=== PATIENT | male | born 1960 | race Caucasian/White ===

== ENCOUNTER 2019-11-28 19:33 | Emergency (ER) | payer BC, SELFPAY ==
--- NOTE | ~2019-11-28 | XR_ITS ---
EXAMINATION: XR chest 2V EXAM DATE: 11/28/2019 20:02 INDICATION: Shortness of breath, cough, left axillary rib pain after running into wall. TECHNIQUE: Frontal and lateral projections of the chest obtained and reviewed. Comparison is made to prior examination from 05/25/2019. FINDINGS: The lungs are clear. There are no pleural effusions. The cardiomediastinal silhouette is within normal limits. There is no pneumothorax suspected. The bones and soft tissues are unremarkab le. IMPRESSION: No acute cardiopulmonary findings. Reviewed, dictated and finalized at location A. LFISH SHUCKER
--- NOTE | ~2019-11-28 | XR_ITS ---
EXAMINATION: XR ribs LT 2V EXAM DATE: 11/28/2019 20:29 INDICATION: Initial encounter following injury, with pain of the left ribs. TECHNIQUE: Frontal projection of the upper left ribs, frontal projection of the lower left ribs, obli que projection of the left ribs, without chest x-ray(s) for interpretation. Correlation is made to [facility] x-ray same date. FINDINGS: There are acute left 10th and 11th rib fractures identified laterally which are essentially nondisplaced. Closed, posttraumatic findings. No other suspicious findings. IMPRESSION: Acute left 10th, 11th rib fractures laterally. Reviewed, dictated and finalized at location A. RUBY ON RAILS DEVELOPER
[2019-11-28 19:37] VITALS: BP 146/98; PULSE 114; RESP 22; TEMP 36.1; O2SAT 98
--- NOTE | 2019-11-28 19:43 | ECG_ITS ---
Measurements Intervals [place] Rate: 109 P: 44 VA: 179 QRS: -31 QRSD: 101 T: 19 QT: 366 QTc: 493 Interpretive Statements SINUS TACHYCARDIA LEFT AXIS DEVIATION INCOMPLETE RIGHT BUNDLE BRANCH BLOCK DELAYED PRECORDIAL R/S TRANSITION BORDERLINE T WAVE ABNORMALITY- ANT/INF LEADS ABNORMAL ECG Electronically Signed On 11-28-2019 20:11:54 GLASS TUBE BENDER by Naif Wagner D.O.
[2019-11-28 20:03] LABS: Basophils Percent Auto 0.4 % (0.2-1.2); Eosinophils Percent Auto 0.1 % (0-4.4); Hemoglobin 14.7 g/dL (14.0-18.0); Immature Granulocyte Absolute 0.02 K/mm3 (0.00-0.031); Immature Granulocyte Percent A 0.3 % (0-0.5); Lymphocytes Absolute Auto 1.85 K/mm3 (0.9-3.2); Lymphocytes Percent Auto 26.1 % (18.3-44.2); Mean Corpuscular HGB Conc 34.2 g/dl (32-36); Mean Corpuscular Hemoglobin 33.8 pg (26-34); Mean Corpuscular Volume 98.9 fl (80-100); Mean Platelet Volume 8.3 fl (7.4-10.4); Monocytes Absolute Auto 0.6 K/mm3 (0.1-0.6); Monocytes Percent Auto 7.7 % (2.6-8.5); Neutrophils Absolute Auto 4.6 K/mm3 (1.3-6.7); Neutrophils Percent Auto 65.4 % (45.5-73.1); Platelet Count Result 183 k/mm3 (150-375); Red Blood Count 4.35 M/mm3 (4.6-6.20); Red Cell Distribution Width 13.7 % (11.5-14.5); White Blood Count 7.1 K/mm3 (4.5-10.0)
--- NOTE | 2019-11-28 20:05 | ED.SOB ---
HPI - SOB/Dyspnea General Chief Complaint: Shortness of Breath/Dyspnea Stated Complaint: sob, cough Time Seen by Provider: 11/28/19 19:51 Source: patient and RN notes reviewed Mode of arrival: ambulatory Limitations: no limitations History of Present Illness HPI Narrative: Pt is a 59 y/o male who presents to the ED with c/o SOB and lt lower rib pain starting roughly 3 weeks ago. He notes that he woke up from a bad dream and ran into a wall 3 weeks ago. Pt states that he struck his lt lower chest on the wall during the incident, and notes that he has had SOB due to difficulty taking a deep breath from hitting his ribs. He also reports a recent cough and anxiety, but denies any fever, lightheadedness, or dizziness. Pt states that he hasn't taken any pain medications for his symptoms. He notes that he is currently taking ASA 81 mg daily. MD elicited complaint: shortness of breath and chest pain (lt lower rib pain) Onset (ago): week(s) (3) Context: trauma/injury (struck lt lower chest on wall) Associated symptoms: cough and other (anxiety) Treatment prior to arrival: none Related Data Home Medications Medication Instructions Recorded Confirmed B Complex-Vitamin B12 11/28/19 aspirin [Adult Low Dose Aspirin] 162 mg PO DAILY 11/28/19 vitamin B complex 11/28/19 Allergies Allergy/AdvReac Type Severity Reaction Status Date / Time morphine Allergy Unknown Vomiting Verified 11/28/19 20:11 Review of Systems Review of Systems: All systems reviewed & are unremarkable except as noted in HPI and below Constitutional: Constitutional: Denies fever(s) Cardiovascular: Cardiovascular: Reports chest pain (lt lower rib pain) Respiratory: Respiratory: Reports cough and Reports dyspnea Neurologic: Denies dizziness and Denies other (lightheadedness) Psychiatric: Psychiatric: Reports anxiety PMFSH Past Medical History Medical History Anxiety Back pain Depression History of angina Internal hemorrhoids Kidney stones Melena Rib fracture Wrist fracture, right Surgical History Surgical History Hx of arthroscopy of right knee Family History Family History (Updated 08/04/18 @ 15:27 by DOCTOR UNKNOWN) Other Carcinoma of colon Social History Social History Smoking status: Current some day smoker Alcohol intake: current Exam Narrative: Exam Narrative: GENERAL: Well-appearing, well-nourished, and in no acute distress. HEAD: Normocephalic, atraumatic EYES: PERRLA and EOMI, conjunctiva clear without discharge THROAT:Mucous membranes moist, Oropharynx normal without erythema, exudate, peritonsillar swelling or fluctuance NECK: Supple, without lymphadenopathy or mass RESPIRATORY: No respiratory distress, Airway patent, Respirations non-labored, ; breath sounds anteriorlyleft lateral rib tenderness, no swelling or ecchymosis HEART: Regular rate and rhythm. No murmur heard. Normal peripheral pulses. ABDOMEN: Soft, nontender, nondistended, normal active bowel sounds. No masses. No rebound or guarding, No organomegaly. EXTREMITIES: No edema, normal strength with full range of motion. SKIN: Warm, dry, normal color without rash NEURO: Alert and oriented x3. CN 2-12 grossly intact. No focal deficits. PSYCH: Normal mood and affect. Course Reevaluation(s) Reevaluation #1: Patient presented with left rib pain. He was found to have rib fractures. His is at bedside. I discussed with them they also need to talk with patient's PCP due to his concern about his medication and anxiety. Date: 11/28/19 Time: 21:55 Vital Signs Vital signs: Vital Signs Temperature 96.9 F L 11/28/19 19:37 Pulse Rate 114 H 11/28/19 19:37 Respiratory Rate 22 H 11/28/19 19:37 Blood Pressure 146/98 H 11/28/19 19:37 Pulse Oximetry 98 11/28/19 19:37 Temperature 96.9 F
[2019-11-28 20:07] VITALS: BP 127/90; PULSE 90; PULSE 95; RESP 23; O2SAT 96
[2019-11-28 20:16] LABS: Blood Urea Nitrogen 8 mg/dL (9-20); Calcium 8.8 mg/dL (8.4-10.2); Carbon Dioxide 21 mmol/L (22-30); Chloride 102 mmol/L (98-107); Estimated CRCL calculation 88 ml/min; Estimated Glomerular Filt Rate > 60; Glucose 139 mg/dL (75-110); Potassium 3.7 mmol/L (3.4-5.0); Sodium 141 mmol/L (137-145)
[2019-11-28] MEDS: IBUPROFEN 600 MG TABLET PO (20:44)
[2019-11-28] MEDS: ONDANSETRON HCL ODT 4 MG TABLET PO (20:45)
[2019-11-28 22:28] VITALS: BP 123/87; PULSE 88; RESP 17; O2SAT 99
== END 2019-11-28 22:20 | disposition home or self-care (01) ==
PROVIDERS: Emergency Provider General Practice; PCP Family Medicine
DX: S22.32XA Fracture of one rib, left side, initial encounter for closed fracture (principal); Z87.442 Personal history of urinary calculi; F17.200 Nicotine dependence, unspecified, uncomplicated; R00.0 Tachycardia, unspecified; I45.10 Unspecified right bundle-branch block; R94.31 Abnormal electrocardiogram [ECG] [EKG]; Z79.82 Long term (current) use of aspirin; W22.01XA Walked into wall, initial encounter
CPT/HCPCS: 36415; 71046; 71100; 80048; 85025; 93005; 99284; A9270

== ENCOUNTER 2020-06-03 20:39 | Emergency (ER) | payer BC, SELFPAY ==
[2020-06-03 20:45] VITALS: BP 142/76; PULSE 100; RESP 18; TEMP 36.8; O2SAT 100
[2020-06-03 21:18] LABS: Basophils Percent Auto 0.8 % (0.2-1.2); Eosinophils Absolute Auto 0.1 K/mm3 (0-0.3); Eosinophils Percent Auto 2.2 % (0-4.4); Hematocrit 42.9 % (42.0-52.0); Hemoglobin 15.1 g/dL (14.0-18.0); Immature Granulocyte Absolute 0.01 K/mm3 (0.00-0.031); Immature Granulocyte Percent A 0.2 % (0-0.5); Lymphocytes Absolute Auto 2.33 K/mm3 (0.9-3.2); Lymphocytes Percent Auto 45.6 % (18.3-44.2); Mean Corpuscular HGB Conc 35.2 g/dl (32-36); Mean Corpuscular Volume 96.6 fl (80-100); Mean Platelet Volume 8.5 fl (7.4-10.4); Monocytes Absolute Auto 0.6 K/mm3 (0.1-0.6); Neutrophils Absolute Auto 2.1 K/mm3 (1.3-6.7); Neutrophils Percent Auto 40.2 % (45.5-73.1); Platelet Count Result 184 k/mm3 (150-375); Red Blood Count 4.44 M/mm3 (4.6-6.20); Red Cell Distribution Width 15.4 % (11.5-14.5); White Blood Count 5.1 K/mm3 (4.5-10.0)
[2020-06-03 21:25] LABS: Add Urine Microscopic? YES; Appearance Urine Clear (Clear); Bacteria Urine Trace /hpf; Bilirubin Urine Negative (Negative); Blood Urine Negative (Negative); Color Urine Yellow (Yellow); Glucose Urine UA Negative (Negative); Ketones Urine Negative (Negative); Leukocyte Esterase Ur Negative LEU/UL (Negative); Mucus Urine Heavy /lpf; Nitrate Urine Negative (Negative); Protein Urine Negative (Negative); Specific Grav Ur 1.016 (1.001-1.035); WBC Urine 0-3 /hpf
[2020-06-03 21:33] LABS: Amphetamine Screen Urine Negative (Negative); Barbiturate Screen Urine Negative (Negative); Benzodiazepines Screen Urine Positive (Negative); Cannabinoid Screen Urine Negative (Negative); Cocaine Screen Urine Negative (Negative); Methadone Screen Urine Negative (Negative); Opiate Screen Urine Negative (Negative); Phencyclidine Screen Urine Negative (Negative)
[2020-06-03 21:37] LABS: Alanine Aminotransferase 65 U/L (4-50); Albumin Level 4.6 g/dL (3.5-5.1); Alkaline Phosphatase 89 U/L (38-126); Anion Gap 10 mmol/L (8-16); Aspartate Amino Transferase 88 U/L (17-59); Bilirubin,Total 0.4 mg/dL (0.2-1.3); Blood Urea Nitrogen 10 mg/dL (9-20); Calcium 9.5 mg/dL (8.4-10.2); Carbon Dioxide 27 mmol/L (22-30); Chloride 106 mmol/L (98-107); Estimated CRCL calculation 88 ml/min; Estimated Glomerular Filt Rate > 60; Ethanol 290 mg/dL (<10); Glucose 106 mg/dL (75-110); Potassium 3.8 mmol/L (3.4-5.0); Sodium 143 mmol/L (137-145)
--- NOTE | 2020-06-03 21:52 | PC.NURSE ---
This RN, and Nanette Catalan film cutter in to count patients walton. He has 12,824.00 in walton. Pt not cooperative with counting walton. Don't let Mitchel Merchant or Vladimir Woo know I have this . Pt was told money/dollar amount, asked to sign the belongings list, and he scribbled all over it. Nanette Catalan RN- took the walton to security safe. Pt has 2 bags of belongings in addition- one brown/bookbag type of bag, and another hospital/plastic bag that have been locked up. Juan J Fernandez ED Tech, in to room with this RN to go through pt belongings & to document, as well as locking them up.
--- NOTE | 2020-06-03 21:56 | ED.PSYCH ---
HPI - Psych General Chief Complaint: Psychiatric Symptoms <Satish Bellamy MD - Last Filed: 06/04/20 05:01> Stated Complaint: needs psych eval <Satish Bellamy MD - Last Filed: 06/04/20 05:01> Time Seen by Provider: 06/03/20 21:12 <Satish Bellamy MD - Last Filed: 06/04/20 05:01> History of Present Illness HPI Narrative: Brought in to the ED by police for psychiatric evaluation. He does report depression and suicidal thoughts. No clear plan. Was drinking this evening and took 3 xanax and 2 fluoxatine tablets, denies this was an attempt to harm himself. <Satish Bellamy MD - Last Filed: 06/04/20 05:01> Related Data Allergies/Adverse Reactions: Allergies Allergy/AdvReac Type Severity Reaction Status Date / Time dexamethasone [From TobraDex] Allergy Intermediate swollen Verified 06/03/20 20:42 eyes tobramycin [From TobraDex] Allergy Intermediate swollen Verified 06/03/20 20:42 eyes morphine Allergy Unknown Vomiting Verified 06/03/20 20:42 <Satish Bellamy MD - Last Filed: 06/04/20 05:01> Review of Systems Review of Systems: All systems reviewed & are unremarkable except as noted in HPI and below <Satish Bellamy MD - Last Filed: 06/04/20 05:01> PMFSH Past Medical History Medical History: Medical History Anxiety Back pain Depression History of angina Internal hemorrhoids Kidney stones Melena Rib fracture Wrist fracture, right <Satish Bellamy MD - Last Filed: 06/04/20 05:01> Surgical History Surgical History: Surgical History Hx of arthroscopy wrist Hx of arthroscopy of right knee <Satish Bellamy MD - Last Filed: 06/04/20 05:01> Family History Family History: Family History Other Carcinoma of colon <Satish Bellamy MD - Last Filed: 06/04/20 05:01> Social History Social History: Social History Smoking status: Current some day smoker Alcohol intake: current Gender identity (if verbalized by the patient): Male <Satish Bellamy MD - Last Filed: 06/04/20 05:01> Exam Const: General: no acute distress and alert <Satish Bellamy MD - Last Filed: 06/04/20 05:01> Orientation/consciousness: patient oriented x3 <Satish Bellamy MD - Last Filed: 06/04/20 05:01> HENMT: Head: normal to inspection <Satish Bellamy MD - Last Filed: 06/04/20 05:01> Resp: Effort & Inspection: normal respiratory effort <Satish Bellamy MD - Last Filed: 06/04/20 05:01> Auscultation: clear to auscultation bilaterally <Satish Bellamy MD - Last Filed: 06/04/20 05:01> Cardio: Rate: regular rate <Satish Bellamy MD - Last Filed: 06/04/20 05:01> Rhythm: regular rhythm <Satish Bellamy MD - Last Filed: 06/04/20 05:01> Skin: General skin exam: normal color <Satish Bellamy MD - Last Filed: 06/04/20 05:01> Neuro: General: patient oriented x3 and moves all extremities <Satish Bellamy MD - Last Filed: 06/04/20 05:01> Speech: Abnormal speech present slurred <Satish Bellamy MD - Last Filed: 06/04/20 05:01> Extrem: General: normal to inspection <Satish Bellamy MD - Last Filed: 06/04/20 05:01> Psych: Thought content: Yes Suicidality present <Satish Bellamy MD - Last Filed: 06/04/20 05:01> Course Reevaluation(s) Reevaluation #1: Kimberlee from Crisis evaluated patient. She states she spoke with patient's . She reports that patient has been exhibiting bizarre behavior . He has made suicidal statements in the past. Last night he was witnessed to make a statement stating that was going to be his last meal. He also has history of alcohol abuse. Kimberlee feels he is not safe to discharge to community . She is going to look for psychiatric lloyd
--- NOTE | 2020-06-03 23:16 | PC.NURSE ---
report received at this time. pt sleeping on stretcher, denies any needs/concerns. rr even and unlabored. will continue to monitor pt for baseline status changes.
--- NOTE | 2020-06-03 23:30 | PC.NURSE ---
Nanette Catalan RN , Nursing Security Installation Technician brought pt money back down to the ED a sealed envelope, it was placed in the ED safe per her & this RN.
--- NOTE | 2020-06-04 01:57 | PC.NURSE ---
Patient wished to speak to this RN. Patient states he would like all of his belongings so he can leave. Patient educated that he must be evaluated by a medical office worker to determine if he would be discharged or be placed for psychiatric treatment. Patient reports he does not feel like harming himself, and states he was just tired and that is why he came to the emergency room this evening. Charge nurse Nanette and EDP Josesito notified on situation.
[2020-06-04 05:25] VITALS: BP 118/72; PULSE 65; RESP 17; TEMP 36.8; O2SAT 97
[2020-06-04 07:59] VITALS: BP 127/79; PULSE 63; RESP 12; TEMP 36.3; O2SAT 99
[2020-06-04 08:22] LABS: Ethanol 81 mg/dL (<10)
[2020-06-04 12:20] LABS: Ethanol < 10 mg/dL (<10)
--- NOTE | 2020-06-04 13:58 | ECG_ITS ---
Measurements Intervals [place] Rate: 67 P: 59 [place]: 177 QRS: -15 QRSD: 100 T: 30 QT: 412 QTc: 436 Interpretive Statements SINUS RHYTHM BASELINE WANDER- II, III NORMAL ECG Electronically Signed On 06-04-2020 15:53:35 CDT by Naif Wagner D.O.
--- NOTE | 2020-06-04 15:51 | PC.NURSE ---
Pt. chart faxed to [facility] in [place], [place]
--- NOTE | 2020-06-04 19:02 | PC.NURSE ---
[facility] Nurse to Nurse report phone number [phone]
--- NOTE | 2020-06-04 19:30 | PC.NURSE ---
pt states that he would like to call his at this time to give her the keys. pt states that his planned on bringing up belongings for him to [facility] and she needed the keys to get in his car. pt using phone on wall outside of room. pt aware he is unable to go through his belongings.
--- NOTE | 2020-06-04 20:15 | PC.NURSE ---
pt at bedside. pt requesting that this Rn provide pt's with keys. Charge, RN aware. pt now requesting that take the brown bag because I have a lot of important stuff in it. pt states, I know I brought a lot of walton and I don't want to be taking that with me everywhere that I go. pt states, I feel safe with my taking the 17,000 or 18,000 home because it is more of a liability if I keep tracking it everywhere with me. Charge, RN aware of pt's request. Awaiting to hear from GURJIT Wilkerson.
[2020-06-04 20:48] VITALS: BP 124/92; PULSE 82; RESP 16; TEMP 36.8; O2SAT 99
--- NOTE | 2020-06-04 21:38 | PC.NURSE ---
2100- PATIENTS WAS ASKED TO STEP OUT OF ROOM. THE PATIENT WAS GIVEN 3 OPTIONS REGARDING THE CHAPA HE HAS WITH HIM (PER OUR LEGAL DEPT.) 1. THE PATIENT CAN LEAVE THE MONEY AT THIS FACILITY UNTIL HE IS DISCHARGED FROM THE FACILITY HE IS BEING TRANSFERRED TO. 2. WE CAN ALL P.D. AND HAVE THEM HOLD THE CHAPA. 3. GIVE THE PATIENT THE MONEY, HAVE THE PATIENT SIGN HE RECEIVED THE CHAPA. IF HE GIVES IT TO HIS , HAVE HIM SIGN HE RECEIVED THE MONEY BACK AND GAVE TO HIS , AND HAVE HER SIGN SHE RECEIVED THE CHAPA. THE PATIENT QUICKLY RESPONDED TO WANTING TO GIVE THE MONEY BACK TO HIS . THIS RN, AND WILMER Castelan RN, COUNTED THE CHAPA IN FRONT OF THE PATIENT AND HIS ( ALISHA RASCON). THE TOTAL AMOUNT WAS [phone]. THEY BOTH AGREED TO THE AMOUNT, THE PATIENT HANDED THE MONEY ( THAT WAS PLACED IN AN ENVELOPE) TO HIS . THIS RN AND WILMER Castelan, WITNESSED HIM TURNING THE CHAPA OVER TO HER ( HE KEPT 24.00, AND SHE WAS AWARE) . THE PATIENT SIGNED THAT HE REQUESTED THE CHAPA BE GIVEN TO HIM, HIS ALISHA RASCON SIGNED SHE RECEIVED THE CHAPA.
--- NOTE | 2020-06-04 21:45 | PC.NURSE ---
Money given pt to pt as stated per andrea Fitzpatrick RN note. report given to EMS. all questions/concerns addressed with receiving facility. all belongings sent over with patient. pt aaox4, ambulatory with steady gait. pt remains calm/cooperative.
[2020-06-05 01:17] LABS: SARS-CoV-2 RNA PCR Negative
== END 2020-06-04 21:45 ==
PROVIDERS: Emergency Medicine; Emergency Provider General Practice
DX: F10.10 Alcohol abuse, uncomplicated (principal); F32.9 Major depressive disorder, single episode, unspecified; Y90.8 Blood alcohol level of 240 mg/100 ml or more; F17.200 Nicotine dependence, unspecified, uncomplicated; F41.9 Anxiety disorder, unspecified; Z87.442 Personal history of urinary calculi; Z20.828 Contact with and (suspected) exposure to other viral communicable diseases
CPT/HCPCS: 36415; 80053; 80307; 81001; 84443; 85025; 87635; 93005; 99285; C9803; U0003

== ENCOUNTER 2022-03-15 02:45 | Day surgery (SDC) | payer OTHER, SELFPAY ==
[2022-03-03 11:26] VITALS: BMI 25.8
--- NOTE | 2022-03-15 06:39 | P.PNAN_ITS ---
Anes - Initial Pre Proc Eval Procedure: Operation Date: 03/15/22 08:30 Proposed Procedures p Screening Colonoscopy - Farhat Mitchell MD Date/Time: 03/15/22 06:39 Surgeon: Farhat Mitchell MD Pre Op Diagnosis: history of polyps Patient Data Age: 61 Gender: M Height: 1.8 m Weight: 84 kg Allergies Allergy/AdvReac Type Severity Reaction Status Date / Time morphine Allergy Unknown Vomiting Verified 03/03/22 11:44 Home Medications Medication Instructions Recorded Confirmed Type hydroxyzine HCl 50 mg tablet 50 mg PO ONCE #90 tabs 05/25/21 03/03/22 Rx fluoxetine 40 mg capsule See Rx Instructions .Route 07/03/21 03/03/22 Rx .COMPLEX #90 caps Patient hx anesthesia problems: none Family hx anesthesia problems: none Results Review: All pre-operative results and documents have been reviewed as part of the pre- operative evaluation. [facility] Past Medical History Medical History (Updated 03/15/22 @ 07:20 by Farhat Mitchell MD) Anxiety Back pain Depression History of angina Internal hemorrhoids Kidney stones Melena Rib fracture Wrist fracture, right Surgical History Surgical History Hx of arthroscopy wrist Hx of arthroscopy of right knee Family History Family History Other Carcinoma of colon Social History Social History Smoking status: Light tobacco smoker Tobacco type: cigarettes Alcohol intake: current Drinks per week: 4 Alcohol use details: 4-5 drinks on weekend Substance use: never Substance use type: does not use Gender identity (if verbalized by the patient): Male Spiritual care concerns: No Anes - Eval Final PreProcedure Day of Procedure 03/15/22 06:39 Patient weight: overweight Heart: regular rate and rhythm Lungs: clear to auscultation Airway: Mallampati scale class II Neurological: alert and oriented Last oral intake: >/= 8 hours ASA classification: II Emergent: no Anesthetic plan: proceed Anesthesia type and monitoring: general GIVS and standard monitoring Results Review: All pre-operative results and documents have been reviewed as part of the pre- operative evaluation. Informed Consent: The patient's anesthetic plan and its attendant risks and benefits were discussed with the patient/family/POA. Questions were solicited and answers provided to the satisfaction of the patient/family/POA.
[2022-03-15 06:45] VITALS: BP 116/95; PULSE 95; RESP 18; TEMP 36.2; O2SAT 98; BMI 25.4
--- NOTE | 2022-03-15 07:19 | PM.IMHP ---
H&P: HPI History of Present Illness Date/Time: 03/15/22 07:19 Chief Complaint: Neoplasia screening. Narrative: This is a 61-year-old white male patient referred for screening colonoscopy. Patient has a distant history of a small diminutive polyp removed from the colon 2014 with benign histology. Patient reports that his current weight appetite on bowel movements are normal. He denies abdominal pain. He has had no bleeding. Family history is noncontributory. Patient presents today for screening colonoscopy. Review of Systems Review of Systems: Review of systems noncontributory. [facility] Past Medical History Medical History (Updated 03/15/22 @ 07:20 by Farhat Mitchell MD) Anxiety Back pain Depression History of angina Internal hemorrhoids Kidney stones Melena Rib fracture Wrist fracture, right Surgical History Surgical History Hx of arthroscopy wrist Hx of arthroscopy of right knee Family History Family History Other Carcinoma of colon Social History Social History Smoking status: Light tobacco smoker Tobacco type: cigarettes Alcohol intake: current Drinks per week: 4 Alcohol use details: 4-5 drinks on weekend Substance use: never Substance use type: does not use Gender identity (if verbalized by the patient): Male Spiritual care concerns: No Meds Home Medications and Allergies Home Medications Medication Instructions Recorded Confirmed Type hydroxyzine HCl 50 mg tablet 50 mg PO ONCE #90 tabs 05/25/21 03/15/22 Rx fluoxetine 40 mg capsule See Rx Instructions .Route 07/03/21 03/15/22 Rx .COMPLEX #90 caps Allergies Allergy/AdvReac Type Severity Reaction Status Date / Time morphine Allergy Unknown Vomiting Verified 03/03/22 11:44 Vital Signs Vital Signs - 24 hr 03/15/22 06:45 Temperature 97.2 F L Pulse Rate 95 Respiratory Rate 18 Blood Pressure 116/95 H Pulse Oximetry 98 Oxygen Delivery Room Air Exam Narrative: Physical exam reveals patient to be alert. Vital signs stable. HEENT exam is unremarkable. Patient is anicteric. Lungs are clear to auscultation and percussion. Heart is without murmur or extra sounds. Abdominal exam bowel sounds are present soft nontender with no organomegaly. Digital external rectal exam is normal. Assessment and Plan Assessment and plan (1) Encounter for screening colonoscopy: Code(s): Z12.11 - Encounter for screening for malignant neoplasm of colon Status: Acute Assessment and Plan: Patient presents today for screening colonoscopy. He has a history of a diminutive colon polyp removed from the colon 6 or 8 years ago. Further recommendations will be given after endoscopy.
[2022-03-15] MEDS: LACTATED RINGERS 1,000 ML 150 ML IV CONT (07:23)
[2022-03-15 08:25] VITALS: BP 96/67; PULSE 75; RESP 16; O2SAT 100
[2022-03-15 08:35] VITALS: BP 96/67; PULSE 75; RESP 19; O2SAT 97
[2022-03-15 08:45] VITALS: BP 122/83; PULSE 61; RESP 18; O2SAT 100
== END 2022-03-15 08:59 | disposition home or self-care (01) ==
PROVIDERS: PCP Family Medicine; Visit Provider Internal Medicine Gastroenterology
PROC: 0DJD8ZZ Inspection of Lower Intestinal Tract, Via Natural or Artificial Opening Endoscopic (ICD-10-PCS; CPT 45378; principal; 2022-03-15 08:30)
DX: Z12.11 Encounter for screening for malignant neoplasm of colon (principal); D12.2 Benign neoplasm of ascending colon; K64.8 Other hemorrhoids; K63.5 Polyp of colon; F41.9 Anxiety disorder, unspecified; F32.A Depression, unspecified; K92.1 Melena; F17.210 Nicotine dependence, cigarettes, uncomplicated
CPT/HCPCS: 45385; 88305; J2704; J7120

== ENCOUNTER → 2023-02-10 07:32 | Outpatient (CLI) | payer OTHER, SELFPAY ==
--- NOTE | ~2023-02-10 | XR_ITS ---
XR foot LT min 3V 02/10/2023 08:18 Indication: Left foot pain Procedure: 4 views left foot Comparison: 01/29/2007 Findings: There is osteoarthritis of the first interphalangeal joint and MTP joints. There is anatomi c alignment. No acute fracture or traumatic malalignment. No focal soft tissue abnormality. No foreig n bodies. 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 Reviewed, dictated and finalized at location D. 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
== END ==
PROVIDERS: PCP Family Medicine; Visit Provider Nurse Practitioner Family
DX: S99.929A Unspecified injury of unspecified foot, initial encounter (principal); X58.XXXA Exposure to other specified factors, initial encounter; M19.072 Primary osteoarthritis, left ankle and foot
CPT/HCPCS: 73630

== ENCOUNTER 2023-04-26 16:08 | Outpatient (CLI) | payer OTHER, SELFPAY ==
--- NOTE | ~2023-04-26 | MR_ITS ---
MRI of the left foot CLINICAL HISTORY: Injury, pain TECHNIQUE: Sagittal T1-weighted and STIR images, axial proton-density and proton-density fat-sat imag es, and coronal T1-weighted and proton-density fat-sat images were acquired. FINDINGS: There is marked marrow edema of the third and fourth metatarsal heads and distal shafts, wi thout distinct fracture line. T1 marrow signal is relatively well-preserved, mitigating against osteo myelitis. There is very focal marrow edema at the inferior aspect of the fifth metatarsal head. Remai luis bone marrow signals are unremarkable. Joint spaces are preserved, aside from degenerative change at the sesamoid metatarsal articulations at the first MTP joint region. No joint effusion identified . Flexor and extensor tendons are intact. There is soft tissue edema surrounding the third and fourth m etatarsal heads and distal shafts. There is minimal diffuse subcutaneous soft tissue edema, nonspecif ic. No fluid collection evident. No intermetatarsal bursitis evident. No Castle's neuroma evident. IMPRESSION: Marked marrow edema throughout the third and fourth metatarsal heads and distal shaft, without fractu re line or significant T1 hypointensity. Findings therefore are most suggestive of bone contusions or other stress response/reactive marrow edema. Osteomyelitis unlikely. Probable additional focal bone contusion or reactive marrow edema at the fifth metatarsal head. Surrounding soft tissue edema about the third and fourth metatarsal heads, nonspecific, but could be reactive, inflammatory, or posttraumatic in nature. Reviewed, dictated and finalized at [facility]. IMPRESSION: Marked marrow edema throughout the third and fourth metatarsal heads and distal shaft, without fracture line or significant T1 hypointensity. Findings therefo re are most suggestive of bone contusions or other stress response/reactive mar row edema. Osteomyelitis unlikely. Probable additional focal bone contusion or reactive marrow edema at the fifth metatarsal head. Surrounding soft tissue edema about the third and fourth metatarsal heads, nons pecific, but could be reactive, inflammatory, or posttraumatic in nature.
== END 2023-04-26 16:09 ==
LOC: MICIMG 16:10
PROVIDERS: PCP Family Medicine; Visit Provider Nurse Practitioner Family
DX: S99.922A Unspecified injury of left foot, initial encounter (principal); X58.XXXA Exposure to other specified factors, initial encounter
CPT/HCPCS: 73718

== ENCOUNTER 2023-06-09 13:30 | Outpatient (RCR) | payer OTHER, SELFPAY ==
--- NOTE | 2023-06-01 17:01 | PTOPEVAL1 ---
Assessment and note entered by Maggie Pryor, PT, DPT Evaluation Information Assessment Status Evaluation Diagnosis L foot pain Onset 3 months Subjective Information Pt states he hurt his foot playing golf, he states he was swinging and while trying to protect his back he over rotated on his foot. He states at that moment he heard a few pops in his foot. He has been in a boot for the last 3 months, and has only been out for about 5 days. Pt likes to play golf and riding his bike. Reported Pain Level Pain Score 0: Self Report Assessment PT Clinical Summary Louis presents to therapy today for his initial evaluation with a diagnosis of L foot pain. Today he demonstrates good ankle ROM and strength aside from plantarflexion but this is limited d/t pain reports. He demonstrates decreased toe extension, gait deviations, decreased single leg balance and stability. Skilled therapy services are indicated to decreased pain, improve mobility, and to return to PLOF. Plan of Care Interventions Gait Training,Hot Pack/Cold Pack,Manual Therapy, Neuro Re-education,Patient/Caregiver Educati, Therapeutic Activities,Therapeutic Exercise PT Services Indicated Yes Treatment Frequency and 1x/wk for 4 visits Duration reommended 2x/wk, pt elected to only schedule one follow up visit These treatments will address the objective and functional deficits as defined above. The patient will be advanced safely and appropriately in order for the patient to progress towards his/her prior level of function. Additional exercises will be introduced and as well as a comprehensive home exercise program upon discharge, if needed, ?to ensure carryover of functional gains achieved in the clinic. This treatment plan has been reviewed and agreement upon by the patient.
--- NOTE | 2023-06-23 10:30 | PTOPDC ---
Assessment and note entered by Maggie Pryor, PT, DPT Evaluation Information Assessment Status Discharge - Pt Not Present Diagnosis L foot pain Onset 3 months Subjective Information Pt called and cancelled his scheduled visit for today as well as all remaining appointments. He states he has not heard back from insurance to confirm that therapy is covered. Assessment PT Clinical Summary Mushtaq completed 2 visits of skilled therapy from 06/01/23 to 06/09/23. He will be discharged at this time per pt request.
== END 2023-06-23 11:30 | disposition home or self-care (01) ==
LOC: ANHGOSHPT 13:30
PROVIDERS: PCP Family Medicine; Visit Provider Nurse Practitioner Family
DX: M77.42 Metatarsalgia, left foot (principal)
CPT/HCPCS: 97110; 97116; 97161; 97530

== ENCOUNTER 2025-08-20 09:33 | Emergency (ER) | payer MEDICARE, OTHER, SELFPAY ==
[2025-08-20] VITALS (11 sets, daily range): BP systolic 113–146; BP diastolic 74–92; PULSE 66–88; RESP 14–18; TEMP 36.5; O2SAT 94–100
--- NOTE | ~2025-08-20 | CT_ITS ---
CTA NECK, CTA HEAD Clinical History: dizziness Comparison: Noncontrast CT head today TECHNIQUE: Helical images thoracic inlet to vertex IV contrast information not listed in PACS Coronal, sagittal reformats. Multi planar MIPS CT images acquired with automatic exposure control for dose reduction DLP: 1121 mGy-cm Findings: NASCET Criteria utilized CTA NECK Aortic arch: No aneurysm or dissection. Great vessel origins: No stenosis. CCAs: No stenosis. Cervical ICAs: Noncalcified plaque bilateral carotid bulb but no significant stenosis. Vertebral Arteries: Patent. Lung Apices: Clear. Thyroid: Unremarkable. Nodes: No enlarged nodes. Bones: No acute bony abnormality. Small sebaceous cyst posterior lower neck subcutaneous fat. CTA HEAD: Aneurysms: None. Intracranial ICAs: Patent, unremarkable. ACAs and their distal branches: Patent, unremarkable. A-Comm: Identified. Patent, unremarkable. MCAs and their distal branches: Patent, unremarkable. Basilar artery: Patent, unremarkable. manager group and their distal branches: Patent. Left P1 diminutive. P-Comms: Identified. Patent, unremarkable. IMPRESSION: CTA NECK: 1. No acute findings. CTA HEAD: 1. No acute findings. Reviewed, dictated and finalized at location R. MARKET SELLER
--- NOTE | ~2025-08-20 | CT_ITS ---
CT HEAD NON-CONTRAST Clinical History: dizziness Comparison: None Technique: Unenhanced axial images skull base to vertex Coronal, sagittal reformats CT images acquired with automatic exposure control for dose reduction DLP: 605 mGy-cm Findings: Sulci, ventricles: Unremarkable. No intracerebral hemorrhage. No evidence acute territorial infarct. No mass effect, midline shift. Bony calvarium intact. Visualized paranasal sinuses: Clear. Mastoid air cells: Clear. IMPRESSION: 1. No acute intracranial findings. Reviewed, dictated and finalized at location R. [employer] COMMUNICATIONS SPECIALIST
--- NOTE | ~2025-08-20 | XR_ITS ---
EXAMINATION: XR chest 2V, 08/20/2025 10:00 SENIOR TECHNOLOGIST HISTORY: dizzy COMPARISON: No comparisons available. Technique: 2 views obtained. Findings: The lungs are clear, no effusion. No pneumothorax. Heart is normal size. Mediastinal and hilar contours are within normal limits. Bony thorax no acute abnormality. Impression: No acute cardiopulmonary abnormality. Reviewed, dictated and finalized at location P. OR TECHNOLOGIST Impression: No acute cardiopulmonary abnormality.
--- NOTE | 2025-08-20 09:36 | ECG_ITS ---
Test Date: 2025-08-20 09:39:53 Measurements Intervals [place] Rate: 76 P: 29 [place]: 184 QRS: -35 QRSD: 105 T: 16 QT: 390 QTc: 440 Interpretive Statements SINUS RHYTHM INCOMPLETE RIGHT BUNDLE BRANCH BLOCK BORDERLINE ECG No previous ECG available for comparison Electronically Signed On 08-20-2025 17:25:09 DIE MAKER by Delmer Bradley M.D.
[2025-08-20 09:51] LABS: Hematocrit 37.9 % (42.0-52.0); Hemoglobin 13.3 g/dL (14.0-18.0); Immature Granulocyte Percent A 0.4 % (0-0.5); Lymphocytes Absolute Auto 2.86 K/mm3 (0.9-3.2); Mean Corpuscular HGB Conc 35.1 g/dl (32-36); Mean Corpuscular Hemoglobin 34.7 pg (26-34); Mean Corpuscular Volume 99.0 fl (80-100); Nucleated Red Blood Cells Absolute Auto 0.000 K/mm3 (0.0-0.012); Nucleated Red Blood Cells Perc 0.0 % (0.0-0.2); Platelet Count Result 243 k/mm3 (150-375); Red Blood Count 3.83 M/mm3 (4.6-6.20); White Blood Count 8.1 K/mm3 (4.5-10.0)
[2025-08-20] MEDS: SODIUM CHLORIDE 0.9% IV 1,000 ML 999 ML IV CONT (09:52)
[2025-08-20] MEDS: ONDANSETRON INJ 4 MG/2 ML VIAL IV PUSH (09:53)
--- NOTE | 2025-08-20 09:53 | ED.DIZZY ---
HPI - Dizziness General Chief Complaint: Dizziness Stated Complaint: dizziness since yesterday Time Seen by Provider: 08/20/25 09:37 Source: patient Mode of arrival: ambulatory Limitations: no limitations History of Present Illness HPI Narrative: This is a 64 year old male that presents to the ER for dizziness. Ongoing since yesterday. Reports associated unstable gait, nausea. Denies chest pain or shortness of breath. Related Data Allergies Allergy/AdvReac Type Severity Reaction Status Date / Time morphine AdvReac Unknown Vomiting Verified 08/20/25 09:51 Review of Systems Review of Systems: All systems reviewed & are unremarkable except as noted in HPI and below PMFSH Past Medical History Medical History Anxiety Back pain Depression Internal hemorrhoids Kidney stones Melena Metatarsalgia of left foot Pes cavus of both feet Rib fracture Stress reaction of foot with delayed healing Wrist fracture, right Surgical History Surgical History Hx of arthroscopy wrist Hx of arthroscopy of right knee Family History Family History Other Carcinoma of colon Social History Social History Social History: Caffeine-occasionally Smoking status: Light tobacco smoker Tobacco type: cigarettes Additional smoking assessment comments: Less than 1 per day Alcohol intake: current Drinks per week: 4 Alcohol use details: 4-5 drinks on weekend Substance use: never Substance use type: does not use Lack of Transportation: No Lack of Food: Never True Current Housing: I Have Housing Concerned About Future Housing: No Difficulty Paying Gas/Electric Bills: No Difficulty Paying for Meds: No Currently Unemployed: No Education: Bachelor's Degree Difficulty w/ Childcare or Family Care: No Living arrangements: with family Additional living arrangements comments: Occupation/Education: retired Gender identity (if verbalized by the patient): Male Sexual Orientation (if Verbalized by the Patient): Straight or Heterosexual Spiritual care concerns: No Agree to blood products: Yes Exam Narrative: GENERAL: Uncomfortable, well-nourished, and in no acute distress. HEAD: Normocephalic, atraumatic. EYES: PERRLA and EOMI. ENT: Nares clear, no rhinorrhea or epistaxis. Mucous membranes moist. Oropharynx without tonsillar hypertrophy exudate or other lesions. Bilateral TMs pearly heredia non-bulging NECK: Supple. No adenopathy or masses. CHEST: Clear to auscultation. No respiratory distress. No wheezes rales or rhonchi HEART: Regular rate and rhythm. No murmur heard. Normal peripheral pulses. ABDOMEN: Soft, nontender, nondistended, normal active bowel sounds. EXTREMITIES: Normal range of motion. No edema. Strength equal bilateral upper and lower extremities (5/5) SKIN: Warm, dry, no rash. NEURO: No focal deficits. Alert and oriented x3. Cranial nerves 2-12 grossly intact PSYCH: Normal mood and affect Course Course Emergency Course: patient updated on his workup and recommendation for admission. He wishes to have close follow up with his PCP Vital Signs Vital signs: Vital Signs Temperature 97.7 F 08/20/25 09:36 Pulse Rate 75 08/20/25 09:36 Respiratory Rate 15 08/20/25 09:36 Blood Pressure 138/83 08/20/25 09:36 Pulse Oximetry 99 08/20/25 09:36 Oxygen Delivery Room Air 08/20/25 09:36 Temperature 97.7 F 08/20/25 09:36 Pulse Rate 81 08/20/25 13:36 Respiratory Rate 15 08/20/25 13:36 Blood Pressure 146/88 H 08/20/25 13:36 Pulse Oximetry 96 08/20/25 13:36 Oxygen Delivery Room Air 08/20/25 09:36 MDM - Dizziness MDM Narrative Medical decision making narrative: Patient presents to the emergency department for dizziness. Ongoing since yesterday afternoon. Patient is afebrile and nontoxic appearing. His vitals are stable. He is neurologically intact. CBC and metabolic panel without concerning findings. CT brain without acute findings. CTA brain and carotid without acute findings. Patient did have some relief after IV fluids, meclizine, Zofran. Patient updated on his workup and recommendation for admission. He wishes to have close follow up with his PCP. Instructed to return at any time for further evaluation Differential Diagnosis Differential diagnosis: Likely benign paroxysmal positional vertigo, vertebral basilar insufficiency, cerebrovascular accident and transient cerebral ischemia Lab Data Attestation: I reviewed the patient's lab results. 08/20/25 09:42 08/20/25 09:42 Labs: Lab Results 08/20/25 Range/Units 09:42 WBC 8.1 (4.5-10.0) K/mm3 RBC 3.83 L (4.6-6.20) M/mm3 Hgb 13.3 L (14.0-18.0) g/dL Hct 37.9 L (42.0-52.0) % MCV 99.0 (80-100) fl MCH 34.7 H (26-34) pg MCHC 35.1 (32-36) g/dl RDW 12.5 (11.5-14.5) % Plt Count 243 (150-375) k/mm3 MPV 8.3 (7.4-10.4) fl Immature Gran % (Auto) 0.4 (0-0.5) % Neut % (Auto) 55.2 (45.5-73.1) % Lymph % (Auto) 35.3 (18.3-44.2) % [place] % (Auto) 7.5 (2.6-8.5) % Eos % (Auto) 1.1 (0-4.4) % Baso % (Auto) 0.5 (0.2-1.2) % Lymph # (Auto) 2.86 (0.9-3.2) K/mm3 [place] # (Auto) 0.6 (0.1-0.6) K/mm3 Eos # (Auto) 0.1 (0-0.3) K/mm3 Baso # (Auto) 0.0 (0.0-0.1) K/mm3 Abs Immat Gran (auto) 0.03 (0.00-0.031) K/mm3 Absolute Neuts (auto) 4.5 (1.3-6.7) K/mm3 Absolute Nucleated RBC 0.000 (0.0-0.012) K/mm3 Nucleated RBC % 0.0 (0.0-0.2) % Sodium 136 L (137-145) mmol/L Potassium 4.0 (3.4-5.0) mmol/L Chloride 107 (98-107) mmol/L Carbon Dioxide 24 (22-30) mmol/L Anion Gap 5 (4-12) mmol/L BUN 12 (9-20) mg/dL Creatinine 0.97 (0.7-1.3) mg/dL Estim Creat Clear Calc 69 ml/min Estimated GFR > 60 (59 - ) Glucose 94 (65-110) mg/dL Calcium 9.4 (8.4-10.2) mg/dL Total Bilirubin 0.8 (0.2-1.3) mg/dL AST 31 (17-59) U/L ALT 24 (6-50) U/L Alkaline Phosphatase 52 (38-126) U/L Total Protein 7.0 (6.3-8.2) g/dL Albumin 4.2 (3.5-5.1) g/dL Imaging Data Radiologist's impression: ITS Impressions Head CT 08/20/25 10:04 IMPRESSION: 1. No acute intracranial findings. Chest X-Ray 08/20/25 10:09 Impression: No acute cardiopulmonary abnormality. Head/Neck CTA 08/20/25 12:24 IMPRESSION: CTA NECK: 1. No acute findings. CTA HEAD: 1. No acute findings. ECG Data EKG #1: ECG completion date: 08/20/25 EKG Interpretation: normal rate, sinus rhythm, no ST changes and normal QT Critical Care Time Critical Care Time Critical Care Time: No Discharge Plan Discharge Clinical Impression: Dizziness Patient Disposition: Home Condition: Improved Instructions: Dizziness (ED) Additional Instructions: Return to the emergency department if you experience fever, chest pain, shortness of breath, persistent vomiting, weakness, numbness, or any other symptoms that are concerning to you. Your blood work and imaging were re-assuring today Meclizine as needed for dizziness Follow up with your primary care doctor for further evaluation Patient Language: [place] Prescriptions: New meclizine 25 mg tablet 25 mg PO BID PRN (Reason: dizziness) Qty: 10 0RF No Action triamcinolone acetonide 0.5 % cream 1 applic topical BID Qty: 60 0RF fluoxetine 40 mg capsule See Rx Instructions .ROUTE .COMPLEX Qty: 90 0RF Dose Instruction: TAKE 1 CAPSULE BY MOUTH DAILY Rx Instructions: TAKE 1 CAPSULE BY MOUTH DAILY Follow-up/Referrals: Carmen Newberry DO [Primary Care Provider, Family Practice]
[2025-08-20] MEDS: MECLIZINE HCL 25 MG TABLET PO (09:54)
[2025-08-20 10:14] LABS: Alanine Aminotransferase 24 U/L (6-50); Albumin Level 4.2 g/dL (3.5-5.1); Alkaline Phosphatase 52 U/L (38-126); Anion Gap 5 mmol/L (4-12); Aspartate Amino Transferase 31 U/L (17-59); Bilirubin,Total 0.8 mg/dL (0.2-1.3); Blood Urea Nitrogen 12 mg/dL (9-20); Calcium 9.4 mg/dL (8.4-10.2); Carbon Dioxide 24 mmol/L (22-30); Chloride 107 mmol/L (98-107); Estimated CRCL calculation 69 ml/min; Estimated Glomerular Filt Rate > 60; Glucose 94 mg/dL (65-110); Potassium 4.0 mmol/L (3.4-5.0); Sodium 136 mmol/L (137-145); Total Protein 7.0 g/dL (6.3-8.2)
--- NOTE | 2025-08-20 13:16 | PC.NURSE ---
valium was pulled and wasted. pt refused the medication. rest of the valium was wasted
== END 2025-08-20 15:13 | disposition home or self-care (01) ==
PROVIDERS: Emergency Medicine; Emergency Provider Physician Assistant; PCP Family Medicine
DX: R42 Dizziness and giddiness (principal); I45.10 Unspecified right bundle-branch block; F41.9 Anxiety disorder, unspecified; F32.A Depression, unspecified; Z87.442 Personal history of urinary calculi
CPT/HCPCS: 36415; 70450; 70496; 70498; 71046; 80053; 85025; 93005; 96361; 96374; 99284; A9270; J2405; J7030; Q9967